=== PATIENT | female | born 1945 | race Caucasian/White ===

== ENCOUNTER → 2017-02-11 | Outpatient (CLI) | payer MEDICARE, BC ==
[~2017-02-11] MED LIST: ASPI-110 PO; ASPI1TAB69 PO; BYST10TA2 PO; CULT10CA4 PO; FLUT1INH INH; IBUP-1129; IPRA17I INH; LEVA0.637 INH; LORA-392 PO; MACR100C2 PO; MECL-62 PO; METO10TA PO; MONT10TA2 PO; NEXI40CA PO; NORC5TAB PO; PROM25TA10 PO; VITA20003; XOPEAER4 INH
[2017-02-11 12:43] LABS: AUTOMATED NEUTROPHIL # 6.2 TH/MM3 (1.8-7.7); BASOPHIL # 0.1 TH/MM3 (0-0.2); BASOPHIL % 0.6 % (0.0-2.0); EOSINOPHIL # 0.2 TH/MM3 (0-0.4); EOSINOPHIL % 1.9 % (0.0-4.0); HEMATOCRIT 36.7 % (35.0-46.0); HEMO FLAGS DIFF FINAL; LYMPH % 26.3 % (9.0-44.0); LYMPHOCYTE # 2.6 TH/MM3 (1.0-4.8); MEAN CELL VOLUME 84.2 FL (80.0-100.0); MEAN CORPUSCULAR HEMOGLOBIN 28.4 PG (27.0-34.0); MEAN CORPUSCULAR HGB CONC 33.8 % (32.0-36.0); MONO % 7.8 % (0.0-8.0); NEUT % 63.4 % (16.0-70.0); PLATELET COUNT 306 TH/MM3 (150-450); RED BLOOD COUNT 4.36 MIL/MM3 (4.00-5.30); RED CELL DISTRIBUTION WIDTH 14.6 % (11.6-17.2); WHITE BLOOD COUNT 9.8 TH/MM3 (4.0-11.0)
[2017-02-11 13:21] LABS: ANION GAP 6 MEQ/L (5-15); AST (GOT) 13 U/L (15-37); BICARBONATE 31.8 MEQ/L (21.0-32.0); BLOOD UREA NITROGEN 11 MG/DL (7-18); CHLORIDE 106 MEQ/L (98-107); GLOMERULAR FILTRATION RATE 59 ML/MIN (>89); GLUCOSE,FASTING 90 MG/DL (74-99); POTASSIUM 4.5 MEQ/L (3.5-5.1); SODIUM (NA) 144 MEQ/L (136-145)
[2017-02-11 13:37] LABS: ALKALINE PHOSPHATASE 94 U/L (45-117); ALT (GPT) 22 U/L (10-53); HDL CHOLESTEROL 54.9 MG/DL (40.0-60.0); LDL CHOLESTEROL 95 MG/DL (0-99); THYROXINE (T4) 11.3 MCG/DL (4.8-13.9); TOTAL BILIRUBIN ADULT 0.6 MG/DL (0.2-1.0)
== END ==
LOC: PLAB 09:14
PROVIDERS: ATTEND Family Medicine
DX: I10 Essential (primary) hypertension (principal); E78.2 Mixed hyperlipidemia; E03.8 Other specified hypothyroidism; E55.9 Vitamin D deficiency, unspecified; Z79.899 Other long term (current) drug therapy
CPT/HCPCS: 36415; 80053; 80061; 82306; 84436; 84443; 84480; 85025

== ENCOUNTER 2017-04-27 10:15 | Emergency (ER) | payer MEDICARE, BC ==
[~2017-04-27] VITALS: Ht 160 cm; Wt 92.9 kg
[~2017-04-27 10:15] MED LIST changes: -ASPI-110 PO; -CULT10CA4 PO; -IBUP-1129; -PROM25TA10 PO; -VITA20003
[2017-04-27 10:27] VITALS: BP 151/96; PULSE 75; RESP 16; TEMP 98.4; O2SAT 100
[2017-04-27] MEDS ORDERED: IBUP-1129 (11:51)
[2017-04-27] MEDS ORDERED: PROM25TA10 PO (11:51)
[2017-04-27] MEDS ORDERED: CULT10CA4 PO (11:51)
[2017-04-27] MEDS ORDERED: XOPEAER4 INH (11:51)
[2017-04-27] MEDS ORDERED: ASPI-110 PO (11:51)
[2017-04-27] MEDS ORDERED: IPRA17I INH (11:51)
[2017-04-27] MEDS ORDERED: METO10TA PO (11:51)
[2017-04-27] MEDS ORDERED: VITA20003 (11:51)
--- NOTE | 2017-04-27 11:56 | PD ---
HPI Chief Complaint: Dizziness Time Seen by Provider: 11:32 Travel History International Travel<30 days: No Contact w/Intl Traveler<30days: No Traveled to known affect area: No History of Present Illness HPI This is a 71-year-old female who presents to the emergency department with dizziness that started when she woke up from sleep this morning. She describes it as the room is spinning, constant, severe, improved when she closes her eyes. She says this happened to her once before over the winter. She was told she had BPPV and she was diagnosed with a urinary tract infection at that time. She denies any headaches. She does have some difficulty walking. She also says this morning she had a panic attack because she was upset that this happened to her again and she had a little bit of chest discomfort in the center of her chest which has since subsided. She has no history of diabetes but she does have borderline hypertension and hyperlipidemia. PFSH Past Medical History Arthritis: Yes Asthma: Yes Blood Disorders: No Anxiety: Yes Depression: Yes Heart Rhythm Problems: No Cancer: No Cardiovascular Problems: No High Cholesterol: Yes (BORDERLINE) Chest Pain: No Congestive Heart Failure: No COPD: Yes Diabetes: No Diminished Hearing: No Endocrine: No Gastrointestinal Disorders: Yes (GERD) GERD: Yes Genitourinary: No Hepatitis: No Hiatal Hernia: Yes Hypertension: Yes Immune Disorder: No Inguinal Hernia: Yes (r on ) Implanted Vascular Access Dvce: Yes Medical other: Yes (HEAD AND BILATERAL HAND TREMORS,SHINGLES DOWN SCIATIC NERVE LEFT SIDE) Musculoskeletal: Yes (ARTHRITIS MID BACK) Neurologic: Yes (NUMBNESS LEFT FOOT) Psychiatric: Yes (ANXIETY, CLAUSTRAPHOBIA) Reproductive: No Respiratory: Yes (ASTHMA,COPD,SPOT ON LUNG, BRONCHITIS) Immunizations Current: No Shingles: Yes Sleep Apnea: No Thyroid Disease: No Tetanus Vaccination: > 5 Years Influenza Vaccination: Yes Menopausal: Yes : 6 Para: 3 Miscarriage: 3 Ovarian Cysts: Yes Past Surgical History Abdominal Surgery: Yes (RIGHT INGUINAL HERNIA REPAIR: JUL 2016) Appendectomy: Yes (1970) Body Medical Devices: chip in the left breast-FROM BIOPSY Cardiac Surgery: No Cholecystectomy: Yes (1970) Ear Surgery: No Endocrine Surgery: No Eye Surgery: Yes (LEFT CATARACT) Genitourinary Surgery: No Gynecologic Surgery: Yes (HYSTERECTOMY WITH RIGHT OOPHORECTOMY, LEFT BREAST BX : NEGATIVE) Hysterectomy: Yes (1970) Joint Replacement: Yes (LEFT TOTAL KNEE: 2010, RIGHT TOTAL KNEE: 2014) Neurologic Surgery: No Oral Surgery: No Pacemaker: No Thoracic Surgery: No Other Surgery: Yes (BIOPSY LEFT BREAST 2001) Social History Alcohol Use: Yes (HOLIDAYS ONLY) Tobacco Use: No (QUIT 1992) Substance Use: No Allergies-Medications (Allergen,Severity, Reaction): Coded Allergies: Giuliana (Verified Allergy, Severe, hyper, 04/27/17) giuliana d Klonopin (Verified Allergy, Severe, SLEEPY, 04/27/17) Lexapro (Verified Allergy, Severe, 04/27/17) hot flash n/v Mysoline (Verified Allergy, Severe, 04/27/17) severe anger Paxil (Verified Allergy, Severe, "HYPER", 04/27/17) Sulfamethoxazole (Verified Allergy, Severe, 04/27/17) ears ringing blood in the eyes Zocor (Verified Allergy, Severe, LEG PAIN, 04/27/17) Benadryl (Verified Adverse Reaction, Severe, MAKES PT "HIGH", 04/27/17) CRESTOR (Verified Adverse Reaction, Severe, 04/27/17) LEG PAIN Spiriva (Verified Adverse Reaction, Severe, SHAKES ALL OVER, 04/27/17) Zoloft (Verified Adverse Reaction, Severe, Nausea/Vomiting, 04/27/17) Uncoded Allergies: fish oil (Allergy, Severe, caused acid reflux, 07/28/11) red yeast rice (Allergy, Severe, acid reflux, 07/28/11) LOUAZA (Adverse Reaction, Severe, CAUSES ACID REFLUX, 01/08/13) Reported Meds & Prescriptions Reported Meds & Active Scripts Active Meclizine (Meclizine HCl) 25 Mg Tab 25 Mg PO TID PRN Reported Phenergan (Promethazine HCl) 25 Mg Tablet 25 Mg PO ONCE Metoclopramide (Metoclopramide HCl) 10 Mg Tab 10 Mg PO QID Xopenex Hfa 15 GM Inh (Levalbuterol 15 GM Inh) 45 Mcg/Act Aer 45 Mcg INH Q6HR Shake well before using. (1 puff = 45 mcg) Atrovent HFA 12.9 GM Inh (Ipratropium [place]) 17 Mcg/Act Aer 2 Puff INH Q6HR PRN Vitamin D (Cholecalciferol) 2,000 Unit Tab Culturelle (Lactobacillus Rhamnosus (GG)) 10 B Cell Cap 1 Cap PO BID Aspirin 81 (Aspirin) 81 Mg Tabdr 81 Mg PO DAILY Motrin Ib (Ibuprofen) 200 Mg Tablet Xopenex Hfa 15 GM Inh (Levalbuterol 15 GM Inh) 45 Mcg/Act Aer 45 Mcg INH Q4HR Shake well before using. (1 puff = 45 mcg) Singulair (Montelukast Sodium) 10 Mg Tab 10 Mg PO DAILY Metoclopramide (Metoclopramide HCl) 10 Mg Tab 10 Mg PO QID PRN Ativan (Lorazepam) 0.5 Mg Tab 0.5 Mg PO HS PRN Breo Ellipta Inh (Fluticasone/Vilanterol) 100-25 Mcg/Act Inh 1 Puff INH HS Use daily at the same time. Nexium (Esomeprazole DR) 40 Mg Capdr 40 Mg PO BID Bystolic (Nebivolol) 10 Mg Tab 10 Mg PO DAILY Review of Systems Except as stated in HPI: all other systems reviewed are Neg Physical Exam Narrative GENERAL:Well appearing, no acute distress SKIN: Focused skin assessment warm and dry. HEAD: Atraumatic. Normocephalic. EYES: Pupils equal and round. No injection or drainage. ENT: Moist mucous membranes NECK: Trachea midline. CARDIOVASCULAR: Regular rate and rhythm. No murmur appreciated. RESPIRATORY: Clear to auscultation. Breath sounds equal bilaterally. GASTROINTESTINAL: Abdomen soft, non-tender, nondistended. MUSCULOSKELETAL: No obvious deformities. NEUROLOGICAL: Awake and alert. No obvious cranial nerve deficits. Some leftward horizontal nystagmus, no upper extremity ataxia. No dysarthria or aphasia. Pronounced resting tremor. PSYCHIATRIC: Appropriate mood and affect; insight and judgment normal. Data Data Last Documented VS Vital Signs Date Time Temp Pulse Resp B/P Pulse Ox O2 Delivery O2 Flow Rate FiO2 04/27/17 10:27 98.4 75 16 151/96 100 Orders Complete Blood Count With Diff (04/27/17 11:52) Comprehensive Metabolic Panel (04/27/17 11:52) ^ Insert Iv (04/27/17 11:52) Meclizine (Antivert) (04/27/17 12:00) Urinalysis - C+S If Indicated (04/27/17 11:52) Troponin I (04/27/17 11:52) Electrocardiogram (04/27/17 ) Sodium Chlor 0.9% 1000 Ml Inj (Ns 1000 M (04/27/17 12:00) Urine Culture (04/27/17 12:10) Labs Laboratory Tests Test 04/27/17 12:10 White Blood Count 7.0 TH/MM3 Red Blood Count 4.65 MIL/MM3 Hemoglobin 13.1 GM/DL Hematocrit 39.1 % Mean Corpuscular Volume 84.2 FL Mean Corpuscular Hemoglobin 28.2 PG Mean Corpuscular Hemoglobin 33.5 % Concent Red Cell Distribution Width 13.4 % Platelet Count 288 TH/MM3 Mean Platelet Volume 7.1 FL Neutrophils (%) (Auto) 61.2 % Lymphocytes (%) (Auto) 27.5 % Monocytes (%) (Auto) 6.6 % Eosinophils (%) (Auto) 4.0 % Basophils (%) (Auto) 0.7 % Neutrophils # (Auto) 4.3 TH/MM3 Lymphocytes # (Auto) 1.9 TH/MM3 Monocytes # (Auto) 0.5 TH/MM3 Eosinophils # (Auto) 0.3 TH/MM3 Basophils # (Auto) 0.0 TH/MM3 CBC Comment DIFF FINAL Differential Comment Urine Collection Type CLEAN CATCH Urine Color YELLOW Urine Turbidity CLEAR Urine pH 5.5 Urine Specific Connell 1.021 Urine Protein NEG mg/dL Urine Glucose (UA) NEG mg/dL Urine Ketones NEG mg/dL Urine Occult Blood NEG Urine Nitrite NEG Urine Bilirubin NEG Urine Leukocyte Esterase NEG Urine RBC 0-3 /hpf Urine WBC 3-5 /hpf Urine Squamous Epithelial > 8 /hpf Cells Urine Bacteria MOD /hpf Microscopic Urinalysis Comment CULTURE INDICATED Urine Collection Time 12:10 Sodium Level 142 MEQ/L Potassium Level 4.4 MEQ/L Chloride Level 107 MEQ/L Carbon Dioxide Level 29.9 MEQ/L Anion Gap 5 MEQ/L Blood Urea Nitrogen 10 MG/DL Creatinine 0.81 MG/DL Estimat Glomerular Filtration 70 ML/MIN Rate Random Glucose 101 MG/DL Calcium Level 9.0 MG/DL Total Bilirubin 0.5 MG/DL Aspartate Amino Transf 16 U/L (AST/SGOT) Alanine Aminotransferase 31 U/L (ALT/SGPT) Alkaline Phosphatase 110 U/L Troponin I LESS THAN 0.02 NG/ML Total Protein 7.8 GM/DL Albumin 4.0 GM/DL MDM Medical Decision Making Medical Screen Exam Complete: Yes Emergency Medical Condition: Yes Interpretation(s) Afebrile, no tachycardia, hypertensive No leukocytosis Electrolytes are reassuring Troponin is normal Urinalysis: Bacteria in the urine Differential Diagnosis Urinary tract infection, BPPV, stroke Narrative Course This is a 71-year-old female who presents to the emergency department with dizziness that started this morning. This has happened to her once before and she was diagnosed with peripheral vertigo. She has a normal neurologic exam with no ataxia. Labs are obtained which are reassuring. She does have some bacteria in her urine. Patient will be discharged on an antibiotic. She feels much better after meclizine and IV hydration and she is eager to go home. Diagnosis Primary Impression: Benign positional vertigo Qualified Code: H81.10 - Benign positional vertigo, unspecified laterality Additional Impression: UTI (urinary tract infection) Qualified Code: N30.00 - Acute cystitis without hematuria Patient Instructions: General Instructions Additional Instructions: If you develop fever, persistent vomiting, back pain, or inability to eat return to the emergency department as your urine infection may have progressed to a kidney infection. Complete your antibiotics as prescribed. Stay well hydrated with Gatorade or water. Followup with your primary care physician in 2-3 days if your symptoms have not resolved. Med/Other Pt SpecificInfo: Prescription(s) given Scripts Nitrofurantoin Monohydrate Macrocrystals (Macrobid)100 Mg [id number] Mg PO BID 7 Days Ref 0 Prov:Audrey Shannon MD 04/27/17 Disposition: 01 DISCHARGE HOME Condition: Stable Audrey Shannon MD April 27, 2017 11:56
[2017-04-27] MEDS ORDERED: SODIUM CHLOR 0.9% 1000 ML INJ 1,000 ML IV ONE (12:00)
[2017-04-27] MEDS ORDERED: MECLIZINE HCL 25 MG TAB PO ONE (12:00)
[2017-04-27 12:20] LABS: BLOOD, URINE NEG (NEG); GLUCOSE,URINE NEG (NEG); KETONE, URINE NEG (NEG); NITRITE,URINE NEG (NEG); PH, URINE 5.5 (5.0-8.5)
[2017-04-27 12:27] LABS: BACTERIA, URINE MOD /hpf; COMMENT (UR) CULTURE INDICATED; CULTURE IF INDICATED CULTURE INDICATED; METHOD OF COLLECTION CLEAN CATCH; RBC, URINE 0-3 /hpf (0-3); SQUAMOUS EPITHELIAL CELL URINE > 8 /hpf (0-5); URINE COLOR YELLOW (YELLW/STRAW)
[2017-04-27 12:33] LABS: AUTOMATED NEUTROPHIL # 4.3 TH/MM3 (1.8-7.7); BASOPHIL % 0.7 % (0.0-2.0); EOSINOPHIL # 0.3 TH/MM3 (0-0.4); HEMATOCRIT 39.1 % (35.0-46.0); HEMO FLAGS DIFF FINAL; LYMPH % 27.5 % (9.0-44.0); LYMPHOCYTE # 1.9 TH/MM3 (1.0-4.8); MEAN CELL VOLUME 84.2 FL (80.0-100.0); MEAN CORPUSCULAR HEMOGLOBIN 28.2 PG (27.0-34.0); MEAN CORPUSCULAR HGB CONC 33.5 % (32.0-36.0); MONO % 6.6 % (0.0-8.0); NEUT % 61.2 % (16.0-70.0); PLATELET COUNT 288 TH/MM3 (150-450); RED BLOOD COUNT 4.65 MIL/MM3 (4.00-5.30); RED CELL DISTRIBUTION WIDTH 13.4 % (11.6-17.2)
[2017-04-27 12:37] LABS: CHLORIDE 107 MEQ/L (98-107); POTASSIUM 4.4 MEQ/L (3.5-5.1); SODIUM (NA) 142 MEQ/L (136-145)
[2017-04-27 12:42] LABS: ANION GAP 5 MEQ/L (5-15); BICARBONATE 29.9 MEQ/L (21.0-32.0); BLOOD UREA NITROGEN 10 MG/DL (7-18)
[2017-04-27 12:45] LABS: ALT (GPT) 31 U/L (10-53); AST (GOT) 16 U/L (15-37); GLOMERULAR FILTRATION RATE 70 ML/MIN (>89)
[2017-04-27 12:47] LABS: TOTAL BILIRUBIN ADULT 0.5 MG/DL (0.2-1.0)
[2017-04-27 12:48] LABS: ALKALINE PHOSPHATASE 110 U/L (45-117)
[2017-04-27] MEDS ORDERED: MACR100C2 PO (13:26)
--- NOTE | 2017-04-28 11:52 | EKG ---
Date Performed: 04/27/2017 Time Performed: 12:55:44 PTAGE: 71 years EKG: Sinus rhythm Lateral T wave changes are nonspecific/baseline artifact Low QRS voltages in precordial leads Border line ECG PREVIOUS TRACING : 02/24/2015 08.35 Compared to prior tracing no significant change DOCTOR: Jigar Harper Interpretating Date/Time 04/28/2017 11:51:36
== END 2017-04-27 13:38 | disposition home or self-care (01) ==
LOC: PHED 10:15
DX: H81.10 Benign paroxysmal vertigo, unspecified ear (principal); N39.0 Urinary tract infection, site not specified; M19.90 Unspecified osteoarthritis, unspecified site; G43.909 Migraine, unspecified, not intractable, without status migrainosus; F41.9 Anxiety disorder, unspecified; J44.9 Chronic obstructive pulmonary disease, unspecified; K21.9 Gastro-esophageal reflux disease without esophagitis; I10 Essential (primary) hypertension
CPT/HCPCS: 80053; 81001; 84484; 85025; 87086; 93005; 96360; 99284; J7030

== ENCOUNTER → 2017-08-17 | Outpatient (CLI) | payer MEDICARE, BC ==
[~2017-08-17] MED LIST changes: +ASPI-110 PO; -ASPI1TAB69 PO; +CULT10CA4 PO; +IBUP-1129; -LEVA0.637 INH; -NORC5TAB PO; +PROM25TA10 PO; +VITA20003
[2017-08-17 13:24] LABS: AUTOMATED NEUTROPHIL # 4.2 TH/MM3 (1.8-7.7); BASOPHIL % 0.6 % (0.0-2.0); EOSINOPHIL # 0.4 TH/MM3 (0-0.4); EOSINOPHIL % 4.5 % (0.0-4.0); HEMATOCRIT 37.4 % (35.0-46.0); HEMO FLAGS DIFF FINAL; LYMPH % 33.6 % (9.0-44.0); LYMPHOCYTE # 2.6 TH/MM3 (1.0-4.8); MEAN CELL VOLUME 85.6 FL (80.0-100.0); MEAN CORPUSCULAR HEMOGLOBIN 28.1 PG (27.0-34.0); MEAN CORPUSCULAR HGB CONC 32.9 % (32.0-36.0); MONO % 7.8 % (0.0-8.0); NEUT % 53.5 % (16.0-70.0); PLATELET COUNT 259 TH/MM3 (150-450); RED BLOOD COUNT 4.37 MIL/MM3 (4.00-5.30); WHITE BLOOD COUNT 7.9 TH/MM3 (4.0-11.0)
[2017-08-17 13:48] LABS: ANION GAP 7 MEQ/L (5-15); AST (GOT) 14 U/L (15-37); BICARBONATE 28.4 MEQ/L (21.0-32.0); BLOOD UREA NITROGEN 11 MG/DL (7-18); CHLORIDE 106 MEQ/L (98-107); GLOMERULAR FILTRATION RATE 63 ML/MIN (>89); GLUCOSE,FASTING 90 MG/DL (74-99); POTASSIUM 4.3 MEQ/L (3.5-5.1); SODIUM (NA) 141 MEQ/L (136-145)
[2017-08-17 13:50] LABS: ALT (GPT) 22 U/L (10-53); THYROXINE (T4) 11.2 MCG/DL (4.8-13.9)
[2017-08-17 13:59] LABS: ALKALINE PHOSPHATASE 93 U/L (45-117); HDL CHOLESTEROL 52.1 MG/DL (40.0-60.0); LDL CHOLESTEROL 128 MG/DL (0-99); TOTAL BILIRUBIN ADULT 0.6 MG/DL (0.2-1.0)
== END ==
LOC: PLAB 10:27
PROVIDERS: ATTEND Family Medicine
DX: I10 Essential (primary) hypertension (principal); E78.2 Mixed hyperlipidemia; E03.8 Other specified hypothyroidism; Z79.899 Other long term (current) drug therapy
CPT/HCPCS: 36415; 80053; 80061; 84436; 84443; 84480; 85025

== ENCOUNTER → 2017-09-13 | Outpatient (CLI) | payer MEDICARE, BC ==
[2017-09-13 17:06] LABS: HDL CHOLESTEROL 52.9 MG/DL (40.0-60.0)
== END ==
LOC: PLAB 10:20
PROVIDERS: ATTEND Family Medicine
DX: E78.2 Mixed hyperlipidemia (principal); Z79.899 Other long term (current) drug therapy
CPT/HCPCS: 36415; 80061

== ENCOUNTER → 2017-10-11 | Outpatient (CLI) | payer MEDICARE, BC ==
[~2017-10-11] MED LIST changes: -ASPI-110 PO; +ASPI1TAB57 PO
--- NOTE | 2017-10-25 10:29 | RSPPFT ---
DATE OF PROCEDURE: 10/11/17 COMMENTS: Spirometry shows FVC of 1.9 predicted 2.6, FEV1 of 0.9 predicted 2.0, FEV1/FVC ratio 52% predicted 82%. There is a mild reduction in the TLC at 3.7 predicted 4.9. DLCO is 56% of predicted but within the predicted range when corrected for alveolar volume. IMPRESSION: On the basis of the above, patient has an obstructive lung defect with an associated mild restrictive defect although the flow volume loop is less than ideal.
== END ==
LOC: PHRSP 07:44
PROVIDERS: ATTEND Internal Medicine Pulmonary Disease
DX: J44.9 Chronic obstructive pulmonary disease, unspecified (principal)
CPT/HCPCS: 94060; 94620; 94726; 94729

== ENCOUNTER → 2018-01-02 | Outpatient (CLI) | payer MEDICARE, BC ==
[2018-01-02 13:30] LABS: HEMOGLOBIN 12.9 GM/DL (11.6-15.3)
[2018-01-02 13:31] LABS: AUTOMATED NEUTROPHIL # 3.6 TH/MM3 (1.8-7.7); BASOPHIL % 0.6 % (0.0-2.0); EOSINOPHIL # 0.3 TH/MM3 (0-0.4); EOSINOPHIL % 3.7 % (0.0-4.0); HEMATOCRIT 37.5 % (35.0-46.0); LYMPH % 36.5 % (9.0-44.0); LYMPHOCYTE # 2.6 TH/MM3 (1.0-4.8); MEAN CELL VOLUME 85.3 FL (80.0-100.0); MEAN CORPUSCULAR HEMOGLOBIN 29.4 PG (27.0-34.0); MEAN CORPUSCULAR HGB CONC 34.4 % (32.0-36.0); MEAN PLATELET VOLUME 7.5 FL (7.0-11.0); MONO % 7.3 % (0.0-8.0); MONOCYTE # 0.5 TH/MM3 (0-0.9); NEUT % 51.9 % (16.0-70.0); PLATELET COUNT 260 TH/MM3 (150-450); RED CELL DISTRIBUTION WIDTH 14.4 % (11.6-17.2)
[2018-01-02 13:41] LABS: AST (GOT) 19 U/L (15-37); BICARBONATE 29.9 MEQ/L (21.0-32.0); BLOOD UREA NITROGEN 13 MG/DL (7-18); CALCIUM 8.6 MG/DL (8.5-10.1); CHLORIDE 106 MEQ/L (98-107); CHOLESTEROL 196 MG/DL (120-200); CREATININE 0.87 MG/DL (0.50-1.00); GLOMERULAR FILTRATION RATE 64 ML/MIN (>89); GLUCOSE,FASTING 84 MG/DL (74-99); SODIUM (NA) 141 MEQ/L (136-145); TRIGLYCERIDES 172 MG/DL (42-150)
[2018-01-02 13:50] LABS: ALKALINE PHOSPHATASE 97 U/L (45-117); ALT (GPT) 23 U/L (10-53); CHOLESTEROL/ HDL RATIO 4.06 RATIO; FREE T4 1.22 NG/DL (0.76-1.46); HDL CHOLESTEROL 48.2 MG/DL (40.0-60.0); LDL CHOLESTEROL 113 MG/DL (0-99); TOTAL BILIRUBIN ADULT 0.5 MG/DL (0.2-1.0); TOTAL PROTEIN 7.4 GM/DL (6.4-8.2)
[2018-01-02 16:39] LABS: HEMOGLOBIN A1C 5.6 % (4.3-6.0)
== END ==
LOC: PLAB 10:07
PROVIDERS: ATTEND Family Medicine
DX: I10 Essential (primary) hypertension (principal); E10.8 Type 1 diabetes mellitus with unspecified complications; E78.2 Mixed hyperlipidemia; E03.8 Other specified hypothyroidism; R53.83 Other fatigue; Z79.899 Other long term (current) drug therapy
CPT/HCPCS: 36415; 80053; 80061; 83036; 84439; 84443; 84480; 84482; 85025

== ENCOUNTER → 2018-01-16 | Day surgery (SDC) | payer MEDICARE, BC ==
--- NOTE | 2018-01-04 12:44 | MH ---
cc: RAMAKRISHNA HODGES DATE OF ADMISSION: 01/16/2018 ADMISSION DIAGNOSIS Cataract, right eye. HISTORY OF PRESENT ILLNESS This 72-year-old white female is coming through [facility] for the purpose of a lens extraction of the right eye with intraocular lens implant under general anesthesia. She has noted decreasing visual acuity interfering with her daily activities and elected to have the above procedure. She had a similar procedure on the left eye in December of 2012 and has done well postoperatively and now is requesting cataract surgery for her right eye. Her best corrected visual acuity is 20/100 +1 in the right eye in room light and 20/40 -1 in the left eye. PAST MEDICAL HISTORY The patient has a history of: 1. Hypertension. 2. Chronic obstructive pulmonary disease. 3. Asthma. 4. Panic attacks. 5. Hiatal hernia. 6. Acid reflux. 7. Familial tremor. PAST SURGICAL HISTORY 1. Hysterectomy. 2. Gallbladder surgery. 3. Right breast biopsy. 4. Bilateral total knee procedures. 5. Left toe replaced. 6. Hernia on the right side. 7. Cataract of the left eye. MEDICATIONS Daily medications include: 1. Motrin. 2. Nexium. 3. Breo. 4. Baby aspirin. 5. Ativan. 6. Singulair. 7. Bystolic. 8. Culturelle. 9. Vitamin D. 10. ___. 11. Atrovent p.r.n. 12. Xopenex p.r.n. 13. Levalbuterol p.r.n. 14. Metoclopramide p.r.n. 15. Promethazine p.r.n. 16. Meclizine p.r.n. 17. Gabapentin p.r.n. 18. Clotrimazole p.r.n. 19. Zyrtec p.r.n. 20. Xanax p.r.n. 21. Levsin p.r.n. ALLERGIES She is allergic to FLUTICASONE, LOVAZA, RED YEAST RICE, CIPROFLOXACIN, SULFA, NITRO, SULFAMETHOXAZOLE, ZOLOFT, BENADRYL INJECTIONS, ABRIL D, SPIRIVA, PAXIL, KLONOPIN, MYSOLINE, LEXAPRO, CRESTOR. SOCIAL HISTORY She has not smoked for 20 years and does not drink alcohol. FAMILY HISTORY Family history is positive for mother and sister with cataract. REVIEW OF SYSTEMS HEAD: Patient denies severe headaches, dizziness or recent head injury. EARS: Patient denies hearing loss, ear pain, discharge. The patient has a history of ringing in her ears occasionally. NOSE: Patient has nasal discharge secondary to her allergies. No obstruction or frequent colds. MOUTH AND THROAT: Patient denies soreness of the mouth or tongue, bleeding gums, trouble swallowing, changes in voice or sore throat. NECK: Patient denies neck pain or swelling, limitation of neck movement or neck injury. CARDIOPULMONARY SYSTEM: Due to her COPD she gets some shortness of breath, sleeps on some pillows. Has chronic cough and wheezing. Denies sputum production, hemoptysis, chest pain, palpitations or light-headedness. GI SYSTEM: Patient denies poor appetite, nausea, vomiting, abdominal pain, ulcers, or change in bowel habits. She does have a history of hemorrhoids. SYSTEM: The patient denies urinary frequency, dysuria, change in urine color. NERVOUS SYSTEM: Patient denies convulsions, vertigo, stroke, numbness or weakness. PHYSICAL EXAMINATION VITAL SIGNS: Blood pressure 126/80, pulse 66, respirations 20. HEAD: Normocephalic, atraumatic, but does have a familial tremor of the head. THROAT: Clear. NECK: Supple. CHEST: Clear. HEART: Regular rhythm. ABDOMEN: Without tenderness. EXTREMITIES: Without edema. NEUROLOGIC: Within normal limits except for the tremor. MENTAL STATUS: Within normal limits. EYE EXAM: The patient's best corrected visual acuity is 20/100 +1 in the right eye in room light and 20/40 -1 in the left. Visual rebolledo are full to confrontation testing. Extraocular muscle exam reveals full versions with orthophoria at distance and near. Pupils are 3 mm equal, round, reactive to light without afferent defect. Anterior segment examination reveals nuclear sclerotic and cortical cataract changes in the right eye. There is a posterior chamber intraocular lens in place in the left eye with a cloudy posterior capsule. Intraocular pressure is 13 in the right eye and 12 in the left by applanation tonometry. Dilated fundus exam revealed sharp disk with cup-to-disk ratio 0.3 in the right eye and 0.45 in the left. The macula is clear bilaterally. A posterior vitreous detachment is present in the left eye. A choroidal nevus is noted adjacent to the disk inferiorly in the left eye. IMPRESSION 1. Cataract, right eye. 2. Pseudophakia, left eye. 3. Cloudy posterior capsule, left eye. 4. Choroidal nevus, left eye. 5. Posterior vitreous detachment, left eye. PLAN The plan is lens extraction of the right eye with intraocular lens implant under general anesthesia through [facility]. The patient has been cleared medically. She has been counseled as to the risks, benefits and alternatives and elected to proceed. I feel that cataract surgery will improve the quality of life and activities of daily living in this patient. MD PRAMOD Villalobos/DWIGHT /11:44 AM /12:01 PM
[~2018-01-16] VITALS: Ht 160 cm; Wt 88.0 kg
[~2018-01-16] MED LIST changes: +ACETYLCHOLINE CHL OPHT SOLN 1:100 2 ML VIAL ONE; +ALPR.25 PO; +CETI10CA3 PO; +CHLORHEXIDINE GLUCONATE 2 % 1 PACK (2 CLOTHS) TOPICAL PRN; +CLOTR1%T TOPICAL; +CYCLOPENTOLATE HCL 1% OPHT SOLN 2 ML BTL ONE; +DICLOFENAC SOD 0.1% OPHT SOLN 2.5 ML BTL RIGHT EYE SCH; +EPINEPHrine HCL PF/SF (1:1000) 1 MG/ML AMP I-OCULAR ONE; +FAMOTIDINE 20 MG/2 ML VIAL ONE; +GABA100C4 PO; +GATIFLOXACIN 0.5% OPHT SOLN 2.5 ML BTL ONE; +LACTATED RINGER'S 1000 ML IV PRN; +LEVS0.123 PO; -MACR100C2 PO; +METOPROLOL TARTRATE 25 MG TAB PO PRN; +MIDAZOLAM HCL 2 MG/2 ML VIAL ONE; +ONDANSETRON HCL 4 MG/2 ML VIAL ONE; +PHENYLEPHRINE HCL 2.5% OPTH SOLN 2 ML BTL ONE; +PILOCARPINE HCL 2% OPHT SOLN 15 ML BTL ONE; +POVIDONE IODINE 5% (ANTISEPSIS KIT) 4 APPLICATIONS EACH NARE PRN; +PROMETHAZINE INJ 25 MG/ML VIAL ONE; +PROPARACAINE HCL 0.5% OPHT SOLN 15 ML BTL RIGHT EYE ONE; +SODIUM CHLORID 0.9% 500 ML IV PRN; +TETRACAINE 0.5% OPTH SOLN 4 ML BTL ONE; +TOBRAMYCIN/DEXAMETHASONE OPTH OINT 3.5 GM TUBE ONE; +TROPICAMIDE 1% OPHT SOLN 15 ML BTL ONE; +VISCOAT OPHT IRRIG SOLN 0.75 ML SYRINGE ONE
[2018-01-16] MEDS: CYCLOPENTOLATE HCL 1% OPHT SOLN 2 ML BTL RIGHT EYE SCH ×4 (07:45→07:54)
[2018-01-16] MEDS: PHENYLEPHRINE HCL 2.5% OPTH SOLN 2 ML BTL RIGHT EYE SCH ×4 (07:45→07:54)
[2018-01-16] MEDS: GATIFLOXACIN 0.5% OPHT SOLN 2.5 ML BTL RIGHT EYE SCH ×4 (07:45→07:54)
[2018-01-16] MEDS: TROPICAMIDE 1% OPHT SOLN 15 ML BTL RIGHT EYE SCH ×4 (07:45→07:54)
[2018-01-16 10:45] VITALS: PULSE 75
[2018-01-16 12:30] VITALS: BP 117/71; PULSE 79; RESP 16; TEMP 97.8; O2SAT 95
--- NOTE | 2018-01-17 10:12 | MP ---
cc: RAMAKRISHNA HADLEY M.D. DATE OF SURGERY 01/16/2018 PREOPERATIVE DIAGNOSIS Cataract right eye. POSTOPERATIVE DIAGNOSIS Cataract right eye. OPERATION Extracapsular cataract extraction with posterior chamber intraocular lens implant by phacoemulsification, right eye. SURGEON Ramakrishna Hadley M.D. ANESTHESIA General COMPLICATIONS None INDICATIONS See history and physical previously dictated. OPERATIVE PROCEDURE The patient had adequate general anesthesia, the right eye was prepped and draped in the usual sterile ophthalmic manner. A lid speculum was inserted in the right eye. A 4-0 silk bridle suture was placed through the conjunctiva near the superior rectus muscle and it was tagged to the drape. A fornix-based conjunctival flap was prepared spanning approximately 5 mm in width. Hemostasis was obtained with wet-field cautery. A 3.5 mm groove was made 1 mm from the limbus and dissected up to the limbus in the form of a scleral pocket incision. A stab incision was then made at the 2 o'clock position. Viscoelastic was injected into the anterior chamber. The anterior chamber was entered with a 2.75 mm keratome through the scleral pocket incision. A 360 degree continuous curvilinear capsulorrhexis was then performed. Hydrodissection was utilized to divide the nucleus into inner and outer components and to separate the cortex from the capsule. Phacoemulsification was then utilized to remove the nucleus. The outer nuclear layer was removed with irrigation and aspiration and short bursts of ultrasound as necessary. The cortex was removed with the irrigation-aspiration hand piece. The posterior capsule was polished with the capsule polisher. Viscoelastic was injected into the capsular bag. The intraocular lens was inspected and found to be in good condition. The lens utilized was a Niraj, model number [id number] with a power of +23 diopters. The lens was inserted into the capsular bag. The viscoelastic in the anterior chamber was then removed with the irrigation-aspiration hand piece. Viscoelastic was also removed from beneath the intraocular lens. The anterior chamber was filled with Miochol-E through the stab incision and pressurized. The side port incision was closed with one interrupted 10-0 nylon suture. The wound was checked for leaks and there were none. The 4-0 bridle suture was removed. The conjunctival flap was brought down over the wound and secured with cautery. Pilocarpine 2% eye drops were instilled topically. The lid speculum was removed. TobraDex ophthalmic ointment was applied. The eye was double patched and shielded. The patient tolerated the procedure well and left the Operating Room in satisfactory condition. MD PRAMOD Villalobos/OLESYA /10:48 AM /10:03 AM
== END | disposition home or self-care (01) ==
LOC: PHSDC 06:52
PROVIDERS: ATTEND Ophthalmology
DX: H26.9 Unspecified cataract (principal); I10 Essential (primary) hypertension; J44.9 Chronic obstructive pulmonary disease, unspecified; K21.9 Gastro-esophageal reflux disease without esophagitis; Z87.891 Personal history of nicotine dependence; Z88.1 Allergy status to other antibiotic agents; Z88.2 Allergy status to sulfonamides
CPT/HCPCS: 00142; 66984; J0171; J2250; J2405; J2550; J7040; V2632

== ENCOUNTER 2018-02-27 22:39 | Emergency (ER) | payer MEDICARE, BC ==
[~2018-02-27] VITALS: Ht 160 cm; Wt 88.7 kg
[~2018-02-27 22:39] MED LIST changes: -ACETYLCHOLINE CHL OPHT SOLN 1:100 2 ML VIAL ONE; -CETI10CA3 PO; -CHLORHEXIDINE GLUCONATE 2 % 1 PACK (2 CLOTHS) TOPICAL PRN; -CYCLOPENTOLATE HCL 1% OPHT SOLN 2 ML BTL ONE; -DICLOFENAC SOD 0.1% OPHT SOLN 2.5 ML BTL RIGHT EYE SCH; -EPINEPHrine HCL PF/SF (1:1000) 1 MG/ML AMP I-OCULAR ONE; -FAMOTIDINE 20 MG/2 ML VIAL ONE; -GATIFLOXACIN 0.5% OPHT SOLN 2.5 ML BTL ONE; -LACTATED RINGER'S 1000 ML IV PRN; -METOPROLOL TARTRATE 25 MG TAB PO PRN; -MIDAZOLAM HCL 2 MG/2 ML VIAL ONE; -ONDANSETRON HCL 4 MG/2 ML VIAL ONE; -PHENYLEPHRINE HCL 2.5% OPTH SOLN 2 ML BTL ONE; -PILOCARPINE HCL 2% OPHT SOLN 15 ML BTL ONE; -POVIDONE IODINE 5% (ANTISEPSIS KIT) 4 APPLICATIONS EACH NARE PRN; -PROMETHAZINE INJ 25 MG/ML VIAL ONE; -PROPARACAINE HCL 0.5% OPHT SOLN 15 ML BTL RIGHT EYE ONE; -SODIUM CHLORID 0.9% 500 ML IV PRN; -TETRACAINE 0.5% OPTH SOLN 4 ML BTL ONE; -TOBRAMYCIN/DEXAMETHASONE OPTH OINT 3.5 GM TUBE ONE; -TROPICAMIDE 1% OPHT SOLN 15 ML BTL ONE; -VISCOAT OPHT IRRIG SOLN 0.75 ML SYRINGE ONE
[2018-02-27 22:48] VITALS: BP 184/82; PULSE 75; RESP 20; TEMP 99; O2SAT 95
[2018-02-27] MEDS ORDERED: SODIUM CHLOR 0.9% 1000 ML INJ 1,000 ML IV SCH (23:45)
[2018-02-27] MEDS ORDERED: MECLIZINE HCL 25 MG TAB PO ONE (23:45)
[2018-02-27 23:47] LABS: BILIRUBIN, URINE NEG (NEG); BLOOD, URINE NEG (NEG); GLUCOSE,URINE 100 mg/dL (NEG); KETONE, URINE NEG (NEG); NITRITE,URINE POS (NEG); PH, URINE 5.5 (5.0-8.5); URINE LEUKOCYTE ESTERASE TRACE (NEG)
[2018-02-27 23:51] LABS: URINE COLOR ORANGE (YELLW/STRAW)
[2018-02-27 23:52] LABS: BACTERIA, URINE RARE /hpf; RBC, URINE 0-2 /hpf (0-3); SQUAMOUS EPITHELIAL CELL URINE 0-5 /hpf (0-5)
[2018-02-27 23:59] LABS: AUTOMATED NEUTROPHIL # 4.3 TH/MM3 (1.8-7.7); BASOPHIL # 0.1 TH/MM3 (0-0.2); BASOPHIL % 0.9 % (0.0-2.0); EOSINOPHIL # 0.3 TH/MM3 (0-0.4); EOSINOPHIL % 3.8 % (0.0-4.0); HEMATOCRIT 33.9 % (35.0-46.0); HEMOGLOBIN 11.7 GM/DL (11.6-15.3); LYMPH % 29.2 % (9.0-44.0); LYMPHOCYTE # 2.2 TH/MM3 (1.0-4.8); MEAN CELL VOLUME 85.8 FL (80.0-100.0); MEAN CORPUSCULAR HEMOGLOBIN 29.6 PG (27.0-34.0); MEAN CORPUSCULAR HGB CONC 34.6 % (32.0-36.0); MEAN PLATELET VOLUME 7.1 FL (7.0-11.0); MONO % 6.7 % (0.0-8.0); MONOCYTE # 0.5 TH/MM3 (0-0.9); NEUT % 59.4 % (16.0-70.0); PLATELET COUNT 274 TH/MM3 (150-450); RED BLOOD COUNT 3.96 MIL/MM3 (4.00-5.30); RED CELL DISTRIBUTION WIDTH 13.9 % (11.6-17.2); WHITE BLOOD COUNT 7.4 TH/MM3 (4.0-11.0)
[2018-02-28 00:06] VITALS: BP 161/83; PULSE 74; RESP 18; O2SAT 96
[2018-02-28 00:09] LABS: CALCIUM 8.7 MG/DL (8.5-10.1)
[2018-02-28 00:10] LABS: BICARBONATE 28.3 MEQ/L (21.0-32.0)
[2018-02-28 00:13] LABS: CREATININE 0.86 MG/DL (0.50-1.00)
[2018-02-28] MEDS ORDERED: cefTRIAXone INJ 1,000 MG in SODIUM CHLORIDE 0.9% INJ 100 ML IV ONE (00:30)
[2018-02-28] MEDS ORDERED: ONDANSETRON HCL 4 MG/2 ML VIAL IV PUSH ONE (00:30)
[2018-02-28] MEDS ORDERED: ZOFR4TAB3 SL (00:32)
[2018-02-28] MEDS ORDERED: CEPH-460 PO (00:32)
[2018-02-28] MEDS ORDERED: MECL-62 PO (00:32)
--- NOTE | 2018-02-28 00:32 | PD ---
HPI Chief Complaint: Dizziness Time Seen by Provider: 23:19 Travel History International Travel<30 days: No Contact w/Intl Traveler<30days: No Traveled to known affect area: No History of Present Illness HPI 71-year-old woman who presents emerged from plenty of dizziness throughout the day today. She states that she has had dizziness and lightheadedness starting since this morning. States she has had 2 previous similar episodes that she attributes to a bladder infection. She otherwise has been feeling generally well. Said some nausea with it. No chest pain. No trouble breathing. Some visual flashes and floaters when the symptoms first started as well. No other complaints. History Past Medical History Narrative Medical Hypertension COPD GERD Tetanus Vaccination: > 5 Years Influenza Vaccination: Yes Menopausal: Yes : 6 Para: 3 Social History Alcohol Use: Yes (HOLIDAYS ONLY) Tobacco Use: No (QUIT 1992) Allergies-Medications (Allergen,Severity, Reaction): Coded Allergies: clonazepam (Unverified Allergy, Severe, SLEEPY, 02/27/18) escitalopram (Unverified Allergy, Severe, 02/27/18) hot flash n/v fexofenadine (Unverified Allergy, Severe, hyper, 02/27/18) taras d paroxetine (Unverified Allergy, Severe, "HYPER", 02/27/18) primidone (Unverified Allergy, Severe, 02/27/18) severe anger simvastatin (Unverified Allergy, Severe, LEG PAIN, 02/27/18) sulfamethoxazole (Unverified Allergy, Severe, 02/27/18) ears ringing blood in the eyes Sulfa (Sulfonamide Antibiotics) (Verified Allergy, Unknown, 02/27/18) ciprofloxacin (Verified Allergy, Unknown, 02/27/18) fluticasone (Verified Allergy, Unknown, 02/27/18) nitroglycerin (Verified Allergy, Unknown, 02/27/18) diphenhydramine (Unverified Adverse Reaction, Severe, MAKES PT "HIGH", 02/27) rosuvastatin (Unverified Adverse Reaction, Severe, 02/27/18) LEG PAIN sertraline (Unverified Adverse Reaction, Severe, Nausea/Vomiting, 02/27/18) tiotropium (Unverified Adverse Reaction, Severe, SHAKES ALL OVER, 02/27/18) Uncoded Allergies: fish oil (Allergy, Severe, caused acid reflux, 07/28/11) red yeast rice (Allergy, Severe, acid reflux, 07/28/11) LOUAZA (Adverse Reaction, Severe, CAUSES ACID REFLUX, 01/08/13) Reported Meds & Prescriptions Reported Meds & Active Scripts Active Meclizine (Meclizine HCl) 25 Mg Tab 25 Mg PO TID PRN Reported Levsin (Hyoscyamine Sulfate) 0.125 Mg Tab 0.125 Mg PO PRN Clotrimazole Topical (Clotrimazole) 1% Soln 1 Applic TOPICAL DIRECTED Gabapentin 100 Mg Cap 300 PO PRN Xopenex Hfa 15 GM Inh (Levalbuterol 15 GM Inh) 45 Mcg/Act Aer 45 Mcg INH Q6HR Shake well before using. (1 puff = 45 mcg) Atrovent HFA 12.9 GM Inh (Ipratropium Girdler) 17 Mcg/Act Aer 2 Puff INH Q6HR PRN Culturelle (Lactobacillus Rhamnosus (GG)) 10 B Cell Cap 1 Cap PO BID Aspirin 81 (Aspirin) 81 Mg Tabdr 81 Mg PO DAILY Motrin Ib (Ibuprofen) 200 Mg Tablet Q4-6H Xopenex Hfa 15 GM Inh (Levalbuterol 15 GM Inh) 45 Mcg/Act Aer 45 Mcg INH Q4HR Shake well before using. (1 puff = 45 mcg) Singulair (Montelukast Sodium) 10 Mg Tab 10 Mg PO DAILY Metoclopramide (Metoclopramide HCl) 10 Mg Tab 10 Mg PO QID PRN Ativan (Lorazepam) 0.5 Mg Tab 0.5 Mg PO HS PRN Breo Ellipta Inh (Fluticasone/Vilanterol) 100-25 Mcg/Act Inh 1 Puff INH HS Use daily at the same time. Nexium (Esomeprazole DR) 40 Mg Capdr 40 Mg PO BID Bystolic (Nebivolol) 10 Mg Tab 10 Mg PO DAILY Review of Systems Except as stated in HPI: all other systems reviewed are Neg Physical Exam Narrative GENERAL: Well-appearing 72-year-old woman, no acute distress. SKIN: Focused skin assessment warm/dry. HEAD: Atraumatic. Normocephalic. EYES: Pupils equal and round. No scleral icterus. No injection or drainage. ENT: No nasal bleeding or discharge. Mucous membranes pink and moist. NECK: Trachea midline. No JVD. CARDIOVASCULAR: Regular rate and rhythm. No murmur appreciated. RESPIRATORY: No accessory muscle use. Clear to auscultation. Breath sounds equal bilaterally. GASTROINTESTINAL: Abdomen soft, non-tender, nondistended. Hepatic and splenic margins not palpable. MUSCULOSKELETAL: No obvious deformities. No edema. NEUROLOGICAL: Awake and alert. No obvious cranial nerve deficits. Motor grossly within normal limits. Normal speech. Data Data Last Documented VS Vital Signs Date Time Temp Pulse Resp B/P (MAP) Pulse Ox O2 Delivery O2 Flow Rate FiO2 02/28/18 00:06 74 18 161/83 (109) 96 Room Air 02/27/18 22:48 99.0 Orders Orders Urinalysis - C+S If Indicated (02/27/18 23:32) Complete Blood Count With Diff (02/27/18 23:32) Basic Metabolic Panel (Bmp) (02/27/18 23:32) Iv Access Insert/Monitor (02/27/18 23:32) Sodium Chlor 0.9% 1000 Ml Inj (Ns 1000 M (02/27/18 23:45) Meclizine (Antivert) (02/27/18 23:45) Urine Culture (02/27/18 23:35) Ceftriaxone Inj (Rocephin Inj) (02/28/18 00:30) Ondansetron Inj (Zofran Inj) (02/28/18 00:30) Labs Laboratory Tests Test 02/27/18 23:35 02/27/18 23:48 Urine Color ORANGE Urine Turbidity CLEAR Urine pH 5.5 Urine Specific [place] 1.015 Urine Protein 30 mg/dL Urine Glucose (UA) 100 mg/dL Urine Ketones NEG mg/dL Urine Occult Blood NEG Urine Nitrite POS Urine Bilirubin NEG Urine Urobilinogen 4.0 MG/DL Urine Leukocyte Esterase TRACE Urine RBC 0-2 /hpf Urine WBC 6-8 /hpf Urine Squamous Epithelial Cells 0-5 /hpf Urine Bacteria RARE /hpf Microscopic Urinalysis Comment CULTURE INDICATED White Blood Count 7.4 TH/MM3 Red Blood Count 3.96 MIL/MM3 Hemoglobin 11.7 GM/DL Hematocrit 33.9 % Mean Corpuscular Volume 85.8 FL Mean Corpuscular Hemoglobin 29.6 PG Mean Corpuscular Hemoglobin Concent 34.6 % Red Cell Distribution Width 13.9 % Platelet Count 274 TH/MM3 Mean Platelet Volume 7.1 FL Neutrophils (%) (Auto) 59.4 % Lymphocytes (%) (Auto) 29.2 % Monocytes (%) (Auto) 6.7 % Eosinophils (%) (Auto) 3.8 % Basophils (%) (Auto) 0.9 % Neutrophils # (Auto) 4.3 TH/MM3 Lymphocytes # (Auto) 2.2 TH/MM3 Monocytes # (Auto) 0.5 TH/MM3 Eosinophils # (Auto) 0.3 TH/MM3 Basophils # (Auto) 0.1 TH/MM3 CBC Comment DIFF FINAL Differential Comment Blood Urea Nitrogen 10 MG/DL Creatinine 0.86 MG/DL Random Glucose 101 MG/DL Calcium Level 8.7 MG/DL Sodium Level 141 MEQ/L Potassium Level 3.7 MEQ/L Chloride Level 107 MEQ/L Carbon Dioxide Level 28.3 MEQ/L Anion Gap 6 MEQ/L Estimat Glomerular Filtration Rate 65 ML/MIN MDM Medical Decision Making Medical Screen Exam Complete: Yes Emergency Medical Condition: Yes Interpretation(s) LABS: CBC is unremarkable. BMP is unremarkable. UA positive for pyuria. Differential Diagnosis Dizzy spell, UTI, BPPV, migraine, stroke, other Narrative Course Medical decision making This 69-year-old woman who presents emerged department with dizzy spell. She strongly believes is related to her urinary tract infection. States she was told twice in the past that this was the case was treated for urinary tract infection and improved. Currently having any urinary symptoms. Symptoms are come on this morning. He woke up at 5 [address] had a drive [place] the state which may all be contributing to her symptoms. She looks well. I do not see any focal deficits or definite evidence of stroke. She had 2 previous episodes of spontaneously resolved. She tried some meclizine which did not really help. Urine does show some pyuria. I reviewed her previous cultures which really just grew contaminant. She feels improved with medication here. Will recommend antibiotics, medication as needed, outpatient follow-up, return for any worsening stroke symptoms. I do not think she needs MRI at this point. CT would not really be helpful. UA has orange color and positive nitrates I think this is probably more of the Azo that she is taking. A little bit of pyuria. Will treat for UTI. Diagnosis Primary Impression: Dizziness Additional Impression: UTI (urinary tract infection) Additional Instructions: Take antibiotics as prescribed. The Zofran if needed for nausea or vomiting. Take meclizine as needed for dizzy spells or vertigo. Follow with her primary doctor next 2-4 days. Return to the emergency department if you experience any worsening numbness tingling weakness unsteadiness or difficulty walking. Med/Other Pt SpecificInfo: Prescription(s) given Scripts Ondansetron Odt (Zofran Odt) 4 Mg Tab 4 MG SL Q8HR Y for Nausea/Vomiting, #12 TAB 0 Refills Prov: Stephen Garcia MD 02/28/18 Meclizine (Meclizine) 25 Mg Tab 25 MG PO TID Y for VERTIGO, #15 TAB 0 Refills Prov: Stephen Garcia MD 02/28/18 Cephalexin (Keflex) 500 Mg Cap 500 MG PO Q8H for Infection, #30 CAP 0 Refills Prov: Stephen Garcia MD 02/28/18 Disposition: 01 DISCHARGE HOME Condition: Stable Stephen Garcia MD Feb 28, 2018 00:32
[2018-02-28 01:08] VITALS: BP 164/80; PULSE 81; RESP 18; TEMP 97.8; O2SAT 96
== END 2018-02-28 01:20 | disposition home or self-care (01) ==
LOC: PHED 22:39
DX: R42 Dizziness and giddiness (principal); N39.0 Urinary tract infection, site not specified; I10 Essential (primary) hypertension; J44.9 Chronic obstructive pulmonary disease, unspecified; K21.9 Gastro-esophageal reflux disease without esophagitis; Z87.891 Personal history of nicotine dependence
CPT/HCPCS: 80048; 81001; 85025; 87086; 96361; 96365; 96375; 99284; J0696; J2405; J7030

== ENCOUNTER → 2018-04-20 | Outpatient (CLI) | payer MEDICARE, BC ==
[~2018-04-20] MED LIST changes: -ALPR.25 PO; +CEPH-460 PO; -PROM25TA10 PO; -VITA20003; +ZOFR4TAB3 SL
[2018-04-20 14:10] LABS: AUTOMATED NEUTROPHIL # 3.1 TH/MM3 (1.8-7.7); BASOPHIL # 0.1 TH/MM3 (0-0.2); BASOPHIL % 0.9 % (0.0-2.0); EOSINOPHIL # 0.2 TH/MM3 (0-0.4); EOSINOPHIL % 2.7 % (0.0-4.0); HEMATOCRIT 37.8 % (35.0-46.0); HEMOGLOBIN 12.5 GM/DL (11.6-15.3); LYMPHOCYTE # 2.3 TH/MM3 (1.0-4.8); MEAN CELL VOLUME 86.3 FL (80.0-100.0); MEAN CORPUSCULAR HEMOGLOBIN 28.4 PG (27.0-34.0); MEAN CORPUSCULAR HGB CONC 32.9 % (32.0-36.0); MEAN PLATELET VOLUME 7.5 FL (7.0-11.0); MONO % 8.2 % (0.0-8.0); MONOCYTE # 0.5 TH/MM3 (0-0.9); NEUT % 50.2 % (16.0-70.0); PLATELET COUNT 254 TH/MM3 (150-450); RED BLOOD COUNT 4.39 MIL/MM3 (4.00-5.30); WHITE BLOOD COUNT 6.1 TH/MM3 (4.0-11.0)
[2018-04-20 14:15] LABS: ALBUMIN 3.9 GM/DL (3.4-5.0); BICARBONATE 28.1 MEQ/L (21.0-32.0); BLOOD UREA NITROGEN 10 MG/DL (7-18); CALCIUM 8.7 MG/DL (8.5-10.1); CHLORIDE 106 MEQ/L (98-107); CREATININE 0.92 MG/DL (0.50-1.00); GLOMERULAR FILTRATION RATE 60 ML/MIN (>89); GLUCOSE,FASTING 87 MG/DL (74-99); SODIUM (NA) 143 MEQ/L (136-145)
[2018-04-20 14:26] LABS: ALKALINE PHOSPHATASE 100 U/L (45-117); ALT (GPT) 22 U/L (10-53); AST (GOT) 18 U/L (15-37); CHOLESTEROL 185 MG/DL (120-200); CHOLESTEROL/ HDL RATIO 3.88 RATIO; HDL CHOLESTEROL 47.6 MG/DL (40.0-60.0); LDL CHOLESTEROL 100 MG/DL (0-99); TOTAL BILIRUBIN ADULT 0.5 MG/DL (0.2-1.0); TOTAL PROTEIN 7.2 GM/DL (6.4-8.2); TRIGLYCERIDES 185 MG/DL (42-150)
[2018-04-20 17:36] LABS: HEMOGLOBIN A1C 5.5 % (4.3-6.0)
== END ==
LOC: PLAB 10:00
PROVIDERS: ATTEND Family Medicine
DX: I10 Essential (primary) hypertension (principal); E10.8 Type 1 diabetes mellitus with unspecified complications; E78.2 Mixed hyperlipidemia; E03.8 Other specified hypothyroidism; R53.83 Other fatigue; E55.9 Vitamin D deficiency, unspecified; Z79.899 Other long term (current) drug therapy; Z00.00 Encounter for general adult medical examination without abnormal findings
CPT/HCPCS: 36415; 80053; 80061; 82306; 83036; 84436; 84443; 84480; 84482; 85025